=== PATIENT | female | born 1955 | race Caucasian/White ===

== ENCOUNTER → 2018-11-14 | Day surgery (SDC) | payer MEDICARE ==
[~2018-11-14] MED LIST: ALPR1TAB2 PO; GABA600T7 PO; IV RINGERS,LACTATED 1000ML 1,000 ML IV SCH; LIDO700A4 TP; LIDOCAINE 1% PF 2 ML VIAL. ID PRN; MIDAZOLAM HCL/PF 2 MG/2 ML VIAL. IV PRN; PROPOFOL 20 ML IV ONE; TRAM50TA PO; fentaNYL PF VIAL 100 MCG/2 ML VIAL IV PRN
[2018-11-14 08:57] VITALS: BP 126/66
== END ==
LOC: SURG 07:36
PROVIDERS: ATTEND Internal Medicine Gastroenterology
DX: K21.0 Gastro-esophageal reflux disease with esophagitis (principal); K22.2 Esophageal obstruction; K31.7 Polyp of stomach and duodenum
CPT/HCPCS: 43235; 43450; J2704

== ENCOUNTER → 2020-06-05 | Outpatient (CLI) | payer MEDICARE ==
[2018-11-14 08:57] VITALS: BP 126/66
[~2020-06-05] MED LIST changes: +GADOTERATE 5 MMOL/10ML VIAL. IVP ONE; -IV RINGERS,LACTATED 1000ML 1,000 ML IV SCH; -LIDOCAINE 1% PF 2 ML VIAL. ID PRN; -MIDAZOLAM HCL/PF 2 MG/2 ML VIAL. IV PRN; -PROPOFOL 20 ML IV ONE; -fentaNYL PF VIAL 100 MCG/2 ML VIAL IV PRN
--- NOTE | 2020-06-06 09:04 | KCIC ---
MRI LUMBAR SPINE WITHOUT AND WITH IV CONTRAST, MRI THORACIC SPINE WITHOUT AND WITH IV CONTRAST Date: 06/05/2020 2:28 PM Indication: Reason: THORACIC AND LUMBAR PAIN. Newer back pain in the last yr or so. Prior lumbar gerardo riddhi '97, '98, '07. Comparison: CT lumbar myelogram 06/09/2006. Technique: Multi-planar multi-weighted magnetic resonance imaging of the thoracic and lumbar spine wa s performed with and without intravenous contrast using the standard lumbar spine protocol. 10 cc Cla riscan contrast was administered intravenously during the examination. FINDINGS: Postsurgical changes of posterior instrumentation at L4-S1 with interbody spacers at L4-5 and L5 is. The thoracic and lumbar spine normally aligned. No acute fracture. Moderate multilevel degenerative d isc desiccation and disc height loss. Multilevel trace degenerative endplate edema. L2 hemangioma. The conus terminates at a normal level. No abnormal signal is seen within the visualized spinal cord. No clumping of intrathecal nerve roots. No soft tissue abnormality in the visualized chest, abdomen, or pelvis. Thoracic: Multilevel tiny disc bulges. No significant spinal canal stenosis or neural foraminal narro wing T12-L1: No disc bulge. No facet arthropathy. No significant spinal stenosis or neural foraminal narro wing. L1-L2: Disc bulge. Mild facet arthropathy. No significant spinal stenosis or neural foraminal narrowi ng. L2-L3: Disc bulge. Mild facet arthropathy. No significant spinal stenosis or neural foraminal narrowi ng. L3-L4: Disc bulge. Mild facet arthropathy. Ligamentum flavum thickening. Mild spinal stenosis. No eduard ral foraminal narrowing. L4-L5: Disc bulge with left far lateral protrusion. No spinal canal stenosis or neural foraminal narr owing. L5-S1: Posterior decompression. No spinal canal stenosis. No neural foraminal narrowing. IMPRESSION: Moderate thoracolumbar spondylosis. No high-grade spinal canal stenosis. Electronically signed by: Philipp Dimas MD (06/06/2020 9:02 AM) [id number]
== END ==
LOC: KCIC MRI 14:16
PROVIDERS: ATTEND Family Medicine
DX: M47.815 Spondylosis without myelopathy or radiculopathy, thoracolumbar region (principal); M51.26 Other intervertebral disc displacement, lumbar region; M12.88 Other specific arthropathies, not elsewhere classified, other specified site; D18.09 Hemangioma of other sites
CPT/HCPCS: 72157; 72158; A9575

== ENCOUNTER → 2020-06-23 | Outpatient (CLI) | payer MEDICARE ==
[2018-11-14 08:57] VITALS: BP 126/66
[~2020-06-23] MED LIST changes: -GADOTERATE 5 MMOL/10ML VIAL. IVP ONE
--- NOTE | 2020-06-23 09:38 | KCIC ---
EXAMINATION: Magnetic resonance imaging (MRI) of the cervical spine without contrast 06/23/2020 8:05 AM HISTORY: Cervical radiculopathy. Neck pain with stiffness and limited range of motion. Weakness in th e right upper extremity. TECHNIQUE: Multiplanar multi-weighted MRI of the cervical spine was performed without intravenous con trast using the standard cervical spine protocol. Contrast information: None administered COMPARISON: None available. FINDINGS: There is 2 mm anterolisthesis of C3 on C4 and C4 on C5. There is 2 mm retrolisthesis of C5 on C6. The re is 2 mm anterolisthesis of C6 on C7. There is 2 mm anterolisthesis of T1 on T2 and T2 and T3. Post erior fossa is normal in appearance. Vertebral artery flow voids are maintained. Craniocervical junct ion is intact. Atlantoaxial articulation is intact. Cervical spinal cord signal intensity is normal i n all sequences. Vertebral body heights are maintained. Marrow signal intensity is normal in all sequ ences. No acute fracture is identified. There is no prevertebral soft tissue swelling. No paraspinal soft tissue abnormality is identified. C2-C3: Disc is normal in configuration. No significant facet arthropathy. No neuroforaminal or spinal canal stenosis. C3-C4: There is a mild disc bulge. Moderate left facet arthropathy. Mild uncovertebral joint disease. Mild left neuroforaminal stenosis. No spinal canal stenosis. C4-C5: There is a posterior disc osteophyte complex. Mild facet arthropathy. Mild uncovertebral joint disease. No neuroforaminal or spinal canal stenosis. C5-C6: There is a posterior disc osteophyte complex with central disc extrusion. There is moderate ri ght and mild left facet arthropathy. Moderate right and mild left uncovertebral joint disease. Mild r ight neural foraminal stenosis. Mild spinal canal stenosis without deformity of the cord or cord sign al alteration. C6-C7: There is a posterior discussed by complex with central disc protrusion. Mild facet arthropathy . Moderate uncovertebral joint disease. Mild to moderate bilateral neuroforaminal stenosis. Mild spin al canal stenosis without deformity of the cord or cord signal alteration. Findings are exacerbated b y ligamentum flavum infolding. C7-T1: Disc is normal in configuration. Mild facet arthropathy. No neuroforaminal or spinal canal concha nosis. T1-T2: There is a left central disc extrusion. Mild facet arthropathy. Mild left neuroforaminal steno sis. Mild spinal canal stenosis without deformity of the cord or cord signal alteration. T2-T3: There is a posterior disc osteophyte complex with central disc extrusion. Mild facet arthropat hy. No significant neuroforaminal or spinal canal stenosis. IMPRESSION: Mild to moderate degenerative changes of the cervical spine, as described in detail above. Electronically signed by: Elba Sethi MD (06/23/2020 9:36 AM) [id number]
--- NOTE | 2020-06-23 14:43 | KCIC ---
EXAM: CT Lumbar Spine without IV contrast INDICATION: Reason: Back pain, pseudoarthritis, previous back surgeries. / Spl. Instructions: / Hist ory: Three previous surgeries, last one 2006. TECHNIQUE: Multi-detector row CT images were obtained through the lumbar spine without the use of IV contrast. Post-processing sagittal and coronal reconstructed images were obtained for interpretation . All CT scans performed at this facility utilize dose optimization techniques as appropriate to the exam, including the following: Automated exposure control and adjustment of the mA and/or KV accordin g to patient size (this includes techniques or standardized protocols for targeted exams where dose i s indication/reason for exam). COMPARISON: MRI L-spine of 06/05/2020 FINDINGS: The lowest fully formed disc is referred to as the L5-S1 level. ALIGNMENT: Alignment is within normal limits. OSSEOUS: Mild generalized demineralization. Interbody graft at L4-L5 is not fully incorporated. It s hows evidence of subsidence into both the inferior endplate of L4 and the superior endplate of L5. In terbody graft at L5-S1 appears better incorporated. No acute fracture. No aggressive appearing bony l esions. Posterior decompression at L5 with bilateral laminectomy is redemonstrated. DISC SPACES: In addition to the aforementioned interbody fusion at L4-5 and L5-S1, mild diffuse disc bulge is present with variable loss of height at L1-L2 through L3-L4.. FACET JOINTS: Migel and pedicle screw construct fusion bilaterally is present spanning L4-S1 on the ri ght, and L5-S1 on the left. SPINAL CANAL: No bony central canal stenosis is apparent. Evaluation is limited in the absence of in trathecal contrast. NEUROFORAMINA: Mild to moderate left L3-L4 foraminal narrowing due to asymmetric disc loss of height . SOFT TISSUES: Unremarkable. IMPRESSION: Posterior lumbar interbody fusion at L4-L5 and L5-S1 as described with no acute osseous abnormality n oted. Electronically signed by: Wu Vieyra MD (06/23/2020 2:41 PM) [id number]
== END ==
LOC: KCIC MRI 07:53
PROVIDERS: ATTEND Neurological Surgery
DX: M47.22 Other spondylosis with radiculopathy, cervical region (principal); M43.26 Fusion of spine, lumbar region; M48.061 Spinal stenosis, lumbar region without neurogenic claudication; M25.78 Osteophyte, vertebrae
CPT/HCPCS: 72131; 72141

== ENCOUNTER → 2020-07-06 | Outpatient (CLI) | payer MEDICARE ==
[2018-11-14 08:57] VITALS: BP 126/66
--- NOTE | 2020-07-03 16:08 | PREOP HP ---
DATE OF SERVICE: 07/06/2020 HISTORY OF PRESENT ILLNESS: The patient is a pleasant 64-year-old, who is having difficulty with lower back pain on the left side as well as some pain in her right buttock and some burning pain in her legs. She says the pain is constant and worse with sitting and standing. She says she missed change positions frequently. She is taking gabapentin, Tylenol and Advil. She has been doing physical therapy exercises at home, which have not helped her. She reports that sitting and driving in her previous vehicle was associated with erosion of skin in the lower lumbar spine on the left related to her instrumentation, which required her to change vehicles. CURRENT MEDICATIONS: Xanax, gabapentin, Tylenol, Advil. PAST MEDICAL HISTORY: Osteoporosis, cervical injury, headaches, arthritis. PAST SURGICAL HISTORY: , right breast lumpectomy, right wrist ganglion cyst, lumbar laminectomy in 1997, L4-L5 lumbar fusion in 1998, hysterectomy, L5-S1 fusion in 2005. FAMILY HISTORY: Alzheimer disease, aneurysm, cancer, diabetes, hypertension, heart disease. SOCIAL HISTORY: , nonsmoker. Drinks alcohol 1-2 times per year. ALLERGIES: CODEINE. REVIEW OF SYSTEMS: A 12-point review of systems was performed and is noncontributory except that mentioned above. PHYSICAL EXAMINATION: GENERAL: Alert, pleasant, in no acute distress. HEAD: Normocephalic, atraumatic. Well-healed lumbar incision. SKIN: Warm and dry. MUSCULOSKELETAL: Lumbar paraspinal muscle bulk is normal, restricted range of motion of the lumbar spine, normal range of motion of the lower extremities bilaterally, the screw at L5-S1 is easily palpated through the skin on the left side and exquisitely tender. EXTREMITIES: No clubbing, cyanosis or edema. NEUROLOGIC: Alert and oriented x 3. Strength is 5/5 in the upper and lower extremities, sensory was intact in the lower extremities. Reflexes were present and symmetric in the lower extremities, normal gait. IMAGING: I reviewed her lumbar MRI scan. On that study, there are postoperative changes at L4-L5 and L5-S1. On the right the instrumentation extends from L4-S1 and on the left L5-S1. ASSESSMENT AND PLAN: Her instrumentation on the right side is rather profound and can be easily palpated beneath the skin, I do think it is the cause of her significant lower back, left-sided pain. I have recommended that we remove this hardware and evaluate the fusion beneath. I feel that this could certainly help her with her right-sided back pain. With regard to her cervical spine that can be addressed after the lumbar spine has been treated. She understands the surgery including the technique, the risk and expected postoperative course. We will make the arrangements. She does understand and would like to proceed. CHARISSE GRIFFITH MD DR: AARON/erick JOB#: [id number] / [id number]
[~2020-07-06] MED LIST changes: +ACET325T9 PO; +DOCU-109 PO; +IBUP200T58 PO
[2020-07-06 10:57] LABS: BASO % 1 % (0-3); EOS % 1 % (0-3); HEMATOCRIT 38.6 % (36.0-47.0); LYMPH # 1.6 x10^3/uL (1.0-4.8); LYMPH % 43 % (24-48); MEAN CORPUSCULAR HEMOGLOBIN 30 pg (25-35); MEAN CORPUSCULAR HGB CONC 34 g/dL (31-37); MEAN CORPUSCULAR VOLUME 88 fL (79-100); MONO # 0.3 x10^3/uL (0.0-1.1); MONO % 9 % (0-9); NEUT # 1.7 x10^3/uL (1.8-7.7); NEUT % 46 % (31-73); PLATELET COUNT 243 x10^3/uL (140-400); RED BLOOD COUNT 4.41 x10^6/uL (3.50-5.40); RED CELL DISTRIBUTION WIDTH 14.1 % (11.5-14.5); WHITE BLOOD COUNT 3.7 x10^3/uL (4.0-11.0)
[2020-07-06 11:11] LABS: ALBUMIN 3.9 g/dL (3.4-5.0); ALBUMIN/GLOBULIN RATIO 1.3 (1.0-1.7); CALCIUM 9.2 mg/dL (8.5-10.1); CREATININE 0.6 mg/dL (0.6-1.0); GFR 100.6; POTASSIUM 3.9 mmol/L (3.5-5.1); TOTAL BILIRUBIN 0.4 mg/dL (0.2-1.0)
== END ==
LOC: SURGPAT 09:47
PROVIDERS: ATTEND Neurological Surgery
DX: Z01.812 Encounter for preprocedural laboratory examination (principal); Z20.822 Contact with and (suspected) exposure to COVID-19; M54.5 Low back pain; Z98.1 Arthrodesis status
CPT/HCPCS: 80053; 85025; 87641; U0003

== ENCOUNTER 2020-07-09 07:06 | Day surgery (SDC) | payer MEDICARE ==
--- NOTE | 2020-07-09 06:53 | PREOP HP ---
DATE OF SERVICE: 07/06/2020 HISTORY OF PRESENT ILLNESS: The patient is a pleasant 64-year-old, who is having difficulty with lower back pain on the left side as well as some pain in her right buttock and some burning pain in her legs. She says the pain is constant and worse with sitting and standing. She says she missed change positions frequently. She is taking gabapentin, Tylenol and Advil. She has been doing physical therapy exercises at home, which have not helped her. She reports that sitting and driving in her previous vehicle was associated with erosion of skin in the lower lumbar spine on the left related to her instrumentation, which required her to change vehicles. CURRENT MEDICATIONS: Xanax, gabapentin, Tylenol, Advil. PAST MEDICAL HISTORY: Osteoporosis, cervical injury, headaches, arthritis. PAST SURGICAL HISTORY: , right breast lumpectomy, right wrist ganglion cyst, lumbar laminectomy in 1997, L4-L5 lumbar fusion in 1998, hysterectomy, L5-S1 fusion in 2005. FAMILY HISTORY: Alzheimer disease, aneurysm, cancer, diabetes, hypertension, heart disease. SOCIAL HISTORY: , nonsmoker. Drinks alcohol 1-2 times per year. ALLERGIES: CODEINE. REVIEW OF SYSTEMS: A 12-point review of systems was performed and is noncontributory except that mentioned above. PHYSICAL EXAMINATION: GENERAL: Alert, pleasant, in no acute distress. HEAD: Normocephalic, atraumatic. Well-healed lumbar incision. SKIN: Warm and dry. MUSCULOSKELETAL: Lumbar paraspinal muscle bulk is normal, restricted range of motion of the lumbar spine, normal range of motion of the lower extremities bilaterally, the screw at L5-S1 is easily palpated through the skin on the left side and exquisitely tender. EXTREMITIES: No clubbing, cyanosis or edema. NEUROLOGIC: Alert and oriented x 3. Strength is 5/5 in the upper and lower extremities, sensory was intact in the lower extremities. Reflexes were present and symmetric in the lower extremities, normal gait. IMAGING: I reviewed her lumbar MRI scan. On that study, there are postoperative changes at L4-L5 and L5-S1. On the right the instrumentation extends from L4-S1 and on the left L5-S1. ASSESSMENT AND PLAN: Her instrumentation on the right side is rather profound and can be easily palpated beneath the skin, I do think it is the cause of her significant lower back, left-sided pain. I have recommended that we remove this hardware and evaluate the fusion beneath. I feel that this could certainly help her with her right-sided back pain. With regard to her cervical spine that can be addressed after the lumbar spine has been treated. She understands the surgery including the technique, the risk and expected postoperative course. We will make the arrangements. She does understand and would like to proceed. CHARISSE GRIFFITH MD DR: AARON/erick JOB#: [id number] / [id number]
[~2020-07-09 07:06] MED LIST changes: +BACITRACIN 50,000 UNIT in IV NORMAL SALINE 1000ML BAG 1,000 ML IRR ONE; -DOCU-109 PO; +HYDROmorphone 2 MG/ML VIAL IVP PRN; +MORPHINE SULFATE 2 MG/ML VIAL. IVP PRN; +PROCHLORPERAZINE 10 MG/2 ML VIAL. IVP PRN; +fentaNYL PF VIAL 100 MCG/2 ML VIAL IVP PRN
[2020-07-09] MEDS ORDERED: GELATIN SPONGE SIZE 100. ONE (07:22)
[2020-07-09] MEDS ORDERED: THROMBIN TOPICAL 20,000 UNIT SPRAY.SYRN KIT TP ONE (07:22)
[2020-07-09] MEDS ORDERED: BUPIVACAINE-EPI 0.5%-1:200000 MPF 30 ML VIAL. ONE (07:22)
[2020-07-09] MEDS ORDERED: KETOROLAC 60 MG/2 ML VIAL. ONE (07:22)
[2020-07-09] MEDS ORDERED: PROPOFOL 10 MG/ML (20ML) VIAL. IV ONE (07:38)
[2020-07-09] MEDS ORDERED: PROPOFOL 50 ML IV ONE (07:38)
[2020-07-09] MEDS ORDERED: LIDOCAINE 2% PF 5 ML VIAL. ONE (07:38)
[2020-07-09] MEDS ORDERED: REMIFENTANIL 2 MG VIAL. IV ONE (07:39)
[2020-07-09] MEDS ORDERED: ROCURONIUM 50 MG/5 ML VIAL. ONE (07:39)
[2020-07-09] MEDS ORDERED: fentaNYL PF VIAL 100 MCG/2 ML VIAL ONE ×2 (07:39→11:00)
[2020-07-09] MEDS ORDERED: SUCCINYLCHOLINE 200 MG/10 ML VIAL. ONE (07:39)
[2020-07-09] MEDS ORDERED: 0.9 % SODIUM CHLORIDE 20 ML VIAL. IJ ONE (07:41)
[2020-07-09] MEDS: IV RINGERS,LACTATED 1000ML 1,000 ML IV SCH ×2 (07:42→11:22)
[2020-07-09] MEDS ORDERED: PHENYLEPHRINE in 0.9% NACL PF 1 MG/10 ML SYRINGE. IV ONE (09:36)
[2020-07-09] MEDS ORDERED: ePHEDrine PF IN SALINE 50 MG/10 ML SYRINGE. IV ONE (09:59)
[2020-07-09] MEDS ORDERED: ONDANSETRON PF 4 MG/2 ML VIAL. ONE (10:11)
--- NOTE | 2020-07-09 10:40 | DISCH ---
DISCHARGE INSTRUCTIONS Condition on Discharge Condition on Discharge: Stable Activity After Discharge Activity Instructions for Disc: Activity as tolerated, Avoid exertion Bathing Instructions: Shower-keep dressing dry Lifting Instructions after Dis: No heavy lifting, No pulling or pushing, Do not lift >10 pounds Driving Instructions after Dis: No driving for 2 weeks Diet after Discharge Additional Diet Restrictions: resume home diet Wound Incision Care Wound/Incision Care: Ice to area for comfort Other wound/incision instructi: may remove dressing in 48 if dry then may shower, no soaking Contacting the after DC Call your doctor for: Concerns you may have Follow-Up Follow up with: Dr. Griffith's nurse in 2 weeks [phone] CHARISSE RGIFFITH MD Jul 09, 2020 10:40
[2020-07-09] MEDS ORDERED: KETOROLAC 30 MG/ML VIAL. IVP ONE (11:15)
[2020-07-09] MEDS: fentaNYL PF VIAL 100 MCG/2 ML VIAL IVP PRN ×2 (11:21→11:38)
[2020-07-09] MEDS ORDERED: DOCU-109 PO (11:34)
[2020-07-09] MEDS ORDERED: TRAM50TA PO (11:34)
--- NOTE | 2020-07-09 11:39 | OP ---
DATE OF SURGERY: 07/09/2020 PREOPERATIVE DIAGNOSES: Prominent lumbar fusion hardware of the left L5-S1 with severe local pain. POSTOPERATIVE DIAGNOSIS: Prominent lumbar fusion hardware of the left L5-S1 with severe local pain. OPERATION PERFORMED: Left L5-S1 removal of hardware, evaluation of fusion. The operation was done with EMG monitoring, SSEP monitoring, fluoroscopy, microscopic dissection. SURGEON: Sunil Griffith M.D. [employer]: ROBIN Zeng assisted with the surgery. She assisted with the removal of the hardware and closure. OPERATIVE INDICATIONS: The patient is a very pleasant 64-year-old, who developed intractable localized back pain, which was interfering with virtually all of her activities. On palpation, I could palpate the hardware and felt that it was significantly prominent, especially that the patient had lost a significant amount of weight between the time she had this hardware replaced and currently, I recommended removal of the hardware to see if this would help her with her localized pain. She understood the rationale for surgery and the technique of the operation, expected postoperative course and wished to go ahead. DESCRIPTION OF PROCEDURE: Following general endotracheal anesthesia, the patient was positioned prone on the Valentin table. Lumbar region was prepped and draped in standard fashion. RONEL hose and AV impulse boots were applied for DVT prophylaxis. Microscope was draped. Fluoroscopy was draped and brought into the field. Ancef 2 grams were given in less than 1 hour prior to initiation of the surgery. Using fluoroscopic guidance, incision was made directly over slightly medial to the hardware at L5-S1 on the left. I dissected down through skin and subcutaneous tissue, opened the fascia and gently dissected part of the muscle fibers and exposed the hardware. I then using a [employer] removal equipment removed the rods and nuts, followed by the connecting beata, followed by the screws. I placed some Gelfoam and obtained perfect hemostasis. There was no significant firing with screw removal. I irrigated copiously, explored carefully. There were no prominent. There was no longer any other prominent areas. I closed the muscle and the fascia with absorbable sutures as well as subcutaneous tissues. The skin was closed with 4-0 subcuticular stitches. The surgery went very well. SUNIL GRIFFITH MD DR: JAMES/erick JOB#: [id number] / [id number]
[2020-07-09] MEDS ORDERED: traMADol 50 MG TABLET PO ONE (11:45)
[2020-07-09 12:00] VITALS: BP 126/73
== END 2020-07-09 12:56 | disposition home or self-care (01) ==
LOC: SURG 07:06
PROVIDERS: ATTEND Neurological Surgery
DX: T85.698A Other mechanical complication of other specified internal prosthetic devices, implants and grafts, initial encounter (principal); M54.5 Low back pain; K21.9 Gastro-esophageal reflux disease without esophagitis; M19.90 Unspecified osteoarthritis, unspecified site; F41.9 Anxiety disorder, unspecified; Z90.710 Acquired absence of both cervix and uterus; Z98.51 Tubal ligation status; Z98.890 Other specified postprocedural states; Z79.899 Other long term (current) drug therapy; Z98.1 Arthrodesis status; Z72.89 Other problems related to lifestyle; Z88.5 Allergy status to narcotic agent; Z88.8 Allergy status to other drugs, medicaments and biological substances; X58.XXXA Exposure to other specified factors, initial encounter; Y93.89 Activity, other specified; Y92.89 Other specified places as the place of occurrence of the external cause; Y99.8 Other external cause status
CPT/HCPCS: 22850; 97161; A4213; A4364; A4930; A6254; A6258; J0330; J0690; J1885; J2370; J2405; J2704; J3010; J7030; 76000

== ENCOUNTER 2021-05-06 08:43 | Day surgery (SDC) | payer MEDICARE ==
[~2021-05-06] VITALS: Ht 159.4 cm; Wt 52.2 kg
[~2021-05-06 08:43] MED LIST changes: +ACETAMINOPHEN 500 MG TABLET PO PRN; -BACITRACIN 50,000 UNIT in IV NORMAL SALINE 1000ML BAG 1,000 ML IRR ONE; +DOCU-109 PO; +HYDROmorphone 2 MG/ML INJ. IVP PRN; -HYDROmorphone 2 MG/ML VIAL IVP PRN; +IV RINGERS,LACTATED 1000ML 1,000 ML IV SCH; +MORPHINE SULFATE 2 MG/ML INJ. IVP PRN; -MORPHINE SULFATE 2 MG/ML VIAL. IVP PRN; +ceFAZolin SODIUM IV Push 1 GM VIAL. IVP PRN
[2021-05-06 09:01] VITALS: BP 179/81
[2021-05-06] MEDS ORDERED: PROPOFOL 10 MG/ML (20ML) VIAL. IV ONE (09:03)
[2021-05-06] MEDS ORDERED: SUCCINYLCHOLINE 200 MG/10 ML VIAL. ONE (09:03)
[2021-05-06] MEDS ORDERED: ROCURONIUM 50 MG/5 ML VIAL. ONE (09:03)
[2021-05-06] MEDS ORDERED: LIDOCAINE 2% PF 5 ML VIAL. ONE (09:03)
[2021-05-06] MEDS ORDERED: fentaNYL PF VIAL 100 MCG/2 ML VIAL ONE ×2 (09:04→10:57)
[2021-05-06] MEDS ORDERED: ePHEDrine PF IN SALINE 50 MG/10 ML SYRINGE. IV ONE (09:04)
[2021-05-06] MEDS ORDERED: MIDAZOLAM HCL/PF 2 MG/2 ML VIAL. ONE (09:04)
[2021-05-06] MEDS ORDERED: DEXAMETHASONE SOD PHOS 4 MG/ML VIAL ONE (09:05)
[2021-05-06] MEDS ORDERED: GLYCOPYRROLATE 1 MG/5 ML VIAL. ONE (09:06)
[2021-05-06] MEDS ORDERED: NEOSTIGMINE METHYLSULFATE 5 MG/5 ML SYRINGE. ONE (09:06)
[2021-05-06] MEDS ORDERED: CHOL10004 PO (09:11)
[2021-05-06] MEDS ORDERED: SCOPOLAMINE 1.5MG PATCH. TD ONE (09:30)
--- NOTE | 2021-05-06 10:03 | PDOC1 ---
History and Physical Date of Admission Date of Admission DATE: 05/06/21 TIME: 10:00 Identification/Chief Complaint Chief Complaint Right upper quadrant abdominal pain Source Source: Chart review, Patient History of Present Illness History of Present Illness 65-year-old female with complaints of right upper quadrant abdominal pain over the last 2 years and significant loss of weight. She denies any nausea vomiting fevers or chills recent ultrasound of the gallbladder showed polyps within the gallbladder but no stones. Past Medical History Renal/: Other (Endometriosis) Past Surgical History Past Surgical History: Breast Biopsy, , Other (Laparoscopy for endometriosis) Family History Family History: No Significant Social History Smoke: No ALCOHOL: rare Drugs: None Current Medications Current Medications Current Medications Fentanyl Citrate (Fentanyl 2ml Vial) 25 mcg PRN Q5MIN PRN IVP MILD PAIN 1-3; Start 05/06/21 at 06:00; Stop 05/07/21 at 05:59 Fentanyl Citrate (Fentanyl 2ml Vial) 50 mcg PRN Q5MIN PRN IVP MODERATE PAIN 4- 6; Start 05/06/21 at 06:00; Stop 05/07/21 at 05:59 Morphine Sulfate (Morphine Sulfate) 1 mg PRN Q10MIN PRN IVP SEVERE PAIN 7-10; Start 05/06/21 at 06:00; Stop 05/07/21 at 05:59 Ringer's Solution 1,000 ml @ 30 mls/hr Q24H IV Last administered on 05/06/21at 09:13; Start 05/06/21 at 06:00; Stop 05/06/21 at 17:59 Hydromorphone HCl (Dilaudid) 0.5 mg PRN Q10MIN PRN IVP SEVERE PAIN 7-10, 2nd CHOICE; Start 05/06/21 at 06:00; Stop 05/07/21 at 05:59 Prochlorperazine Edisylate (Compazine) 5 mg PACU PRN PRN IVP NAUSEA, MRX1; Start 05/06/21 at 06:00; Stop 05/07/21 at 05:59 Acetaminophen (Tylenol) 1,000 mg 1X PREOP PRN PO PRIOR TO PROCEDURE Last administered on 05/06/21at 09:14; Start 05/06/21 at 06:00; Stop 05/06/21 at 15:00 Cefazolin Sodium (Ancef) 1 gm 1X PREOP PRN IVP PRIOR TO PROCEDURE; Start 05/06/21 at 06:00; Stop 05/06/21 at 15:00 Lidocaine HCl (Lidocaine Pf 2% Vial) 5 ml STK-MED ONCE .ROUTE ; Start 05/06/21 at 09:03; Stop 05/06/21 at 09:03; Status DC Propofol (Diprivan) 200 mg STK-MED ONCE IV ; Start 05/06/21 at 09:03; Stop 05/06/21 at 09:03; Status DC Succinylcholine Chloride (Anectine) 200 mg STK-MED ONCE .ROUTE ; Start 05/06/21 at 09:03; Stop 05/06/21 at 09:04; Status DC Rocuronium [place] (Zemuron) 50 mg STK-MED ONCE .ROUTE ; Start 05/06/21 at 09:03; Stop 05/06/21 at 09:04; Status DC Fentanyl Citrate (Fentanyl 2ml Vial) 100 mcg STK-MED ONCE .ROUTE ; Start 05/06/21 at 09:04; Stop 05/06/21 at 09:04; Status DC Midazolam HCl (Versed) 2 mg STK-MED ONCE .ROUTE ; Start 05/06/21 at 09:04; Stop 05/06/21 at 09:04; Status DC Ephedrine Sulfate (ePHEDrine PF IN SALINE SYRINGE) 50 mg STK-MED ONCE IV ; Start 05/06/21 at 09:04; Stop 05/06/21 at 09:05; Status DC Dexamethasone Sodium Phosphate (Decadron) 4 mg STK-MED ONCE .ROUTE ; Start 05/06/21 at 09:05; Stop 05/06/21 at 09:05; Status DC Neostigmine [place] (Neostigmine Methylsulfate) 5 mg STK-MED ONCE .ROUTE ; Start 05/06/21 at 09:06; Stop 05/06/21 at 09:06; Status DC Glycopyrrolate (Robinul) 1 mg STK-MED ONCE .ROUTE ; Start 05/06/21 at 09:06; Stop 05/06/21 at 09:06; Status DC Scopolamine (Transderm-Scop) 1 patch 1X ONCE TD Last administered on 05/06/21at 09:33; Start 05/06/21 at 09:30; Stop 05/06/21 at 09:31; Status DC Active Scripts Active Reported Vitamin D3 (Vitamin D) 25 Mcg Tablet 1,000 Units PO DAILY 1,000 UNITS = 25 MCG Tylenol (Acetaminophen) 325 Mg Tablet 650 Mg PO BID Advil (Ibuprofen) 200 Mg Tablet 200 Mg PO BID Gabapentin 600 Mg Tablet 300 Mg PO BID Xanax (Alprazolam) 1 Mg Tablet 1 Mg PO DAILY Allergies Allergies: Coded Allergies: alendronate sodium (Verified Allergy, Intermediate, N/V, 05/06/21) celecoxib (Unverified Allergy, Intermediate, Swelling, 05/06/21) fentanyl (Verified Allergy, Intermediate, LOW DOSE OK, HIGH DOSE HEART PALPITATIONS, 05/06/21) patch only. IV dose OK morphine (Verified Allergy, Intermediate, BUCIO, N/V, 05/06/21) codeine (Unverified Adverse Reaction, Intermediate, Nausea and Vomiting, 05/06/21) debilitating headache ROS Gastrointestinal: Yes Abdominal Pain Physical Exam General: Alert, Oriented X3, Cooperative, No acute distress HEENT: Atraumatic, PERRLA, EOMI Lungs: Clear to auscultation, Normal air movement Heart: RRR, no murmurs Abdomen: Normal bowel sounds, Soft, Other (Tender to palpation right upper quadrant) Rectal Exam: not examined Extremities: No edema Skin: No significant lesion Neuro: Normal gait, Normal speech Psych/Mental Status: Mental status NL Vitals Vitals Vital Signs Date Time Temp Pulse Resp B/P (MAP) Pulse Ox O2 Delivery O2 Flow Rate FiO2 05/06/21 09:06 97.7 101 18 179/81 100 Room Air 97.7 VTE Prophylaxis Ordered VTE Prophylaxis Devices: Yes VTE Pharmacological Prophylaxi: Contraindicated Assessment/Plan Assessment/Plan Gallbladder polyp with right upper quadrant abdominal pain plan laparoscopic cholecystectomy Justifications for Admission Other Justification CORI SEBASTIAN MD May 06, 2021 10:03
[2021-05-06] MEDS ORDERED: SURGICEL HEMOSTAT 4X8 EACH. ONE (10:36)
[2021-05-06] MEDS ORDERED: IOHEXOL 300 MG/ML 50 ML VIAL. ONE (10:36)
[2021-05-06] MEDS ORDERED: BUPIVACAINE-EPI 0.25% 30 ML VIAL KIT. ONE (10:36)
[2021-05-06] MEDS ORDERED: SUGAMMADEX SODIUM 200 MG/2 ML VIAL. IVP ONE (11:15)
--- NOTE | 2021-05-06 11:16 | PDOC4 ---
Operative Note Operative Note Date: May 06, 2021 at 11:13 AM Preoperative diagnosis: Gallbladder polyp Postoperative diagnosis: Same Procedure: Laparoscopic cholecystectomy with fluorescein cholangiography Surgeon: Petey Specimen: Gallbladder Dictation: Patient is a 65-year-old female has had right upper quadrant abdominal pain and ultrasound showing gallbladder polyp. Procedure of laparoscopic cholecystectomy was explained to the patient detail risk benefits were also discussed including bleeding infection injury to intra-abdominal contents possible necessitating further open operations alternatives to this procedure also discussed with the patient who seemed to understand and gave both verbal and written consent to have the procedure performed. Patient was taken to the operating room placed in the supine position general anesthesia was initiated once patient was asleep and intubated her abdomen was prepped and draped usual sterile fashion using ChloraPrep. Area just below the umbilicus was injected with quarter percent Marcaine with epinephrine incision was made 11 blade scalpel and a varies needle was placed within the abdomen creating pneumoperitoneum once this was complete the millimeter port was placed and a 5 mm camera space within the abdomen and inspected no other abnormalities were noted. 5 mm ports placed in the right upper quadrant 5 mm port was placed in the right midabdomen and a 5 mm port was placed in the right lateral abdomen all under direct visualization. The dome of the gallbladder was grasped retracted cephalad the infundibulum of the gallbladder is grasped retracted laterally exposing the triangle adherent tissues of the triangle were taken down exposing the cystic duct and cystic artery. Fluorescein cholangiography was performed which showed good fluorescein dye within the cystic duct and the common bile duct without evidence of obstruction. The cystic duct and cystic artery doubly clipped and transected the gallbladder was taken off the liver with hook electrocautery placed in Endo Catch bag moved to the umbilicus right upper quadrant was irrigated and suctioned dry hemostasis deemed appropriate the pneumoperitoneum was reduced all ports were removed the fascial defect at the umbilicus was closed with a [id number] Vicryl suture and the skin was reapproximated all port sites for subcuticular Monocryl Mastisol Steri-Strips and island dressings were applied. Patient was awakened and extubated in the operating room taken to recovery in stable condition all sponge instrument needle counts listed as correct estimated blood loss 5 mL CORI SEBASTIAN MD May 06, 2021 11:16
[2021-05-06] MEDS ORDERED: OXYC-325 PO (11:21)
--- NOTE | 2021-05-06 11:24 | DISCH ---
DISCHARGE INSTRUCTIONS Condition on Discharge Condition on Discharge: Stable Activity After Discharge Activity Instructions for Disc: Avoid exertion Other activity instructions: No lifting more than 20 pounds for 2 weeks Diet after Discharge Diet after Discharge: Low Fat Additional Diet Restrictions: resume home diet Wound Incision Care Wound/Incision Care: Ice to area for comfort Other wound/incision instructi: May shower in 24 hours Contacting the after DC Call your doctor for: If your condition worsens Follow-Up Follow up with: Dr. Sebastian in 2 weeks CORI SEBASTIAN MD May 06, 2021 11:24
[2021-05-06] MEDS ORDERED: oxyCODONE/APAP 5/325 1 TAB TABLET PO ONE (12:15)
[2021-05-06 12:47] VITALS: BP 145/72
--- NOTE | 2021-05-11 09:08 | PATHOLOGY ---
[facility] Accession Number: [id number] . 01 Material submitted: . gallbladder - GALLBLADDER AND CONTENTS . 01 Clinical history: . GALLBLADDER POLYP LAP VENUS . 02 Diagnosis: Gallbladder, laparoscopic cholecystectomy: - Cholesterolosis, focally polypoid. - Chronic cholecystitis. - Focal lipogranulomata of gallbladder neck lymph node. (JPM:pouncer; 05/10/2021) MBR 05/10/2021 1158 Local . 02 Comment: There are no calculi identified within the gallbladder lumen or specimen container. There is no evidence of malignancy. (JPM:pouncer; 05/10/2021) . 02 Electronically signed: . Sukh Kamara MD, Pathologist NPI- [id number] . 01 Gross description: . Fixative: Formalin Labeled: Gallbladder and contents Specimen received: Previously punctured gallbladder Dimensions: 7.4 x 4.1 x 1.0 cm Serosa: Blue-chawla Lymph node: None identified Mucosa: Velvety, bile-stained Average wall thickness: 0.1 cm Calculi: None identified Abnormalities: Several bright yellow polypoid excrescences ranging in size from 0.1-0.3 cm . Rn Rehabilitation body, fundus, and the cystic duct margin in cassette A1, to include polypoid excrescences. (CAA; 05/07/2021) QAC/QAC 05/10/2021 1157 Local . 02 Pathologist provided ICD-10: K81.1, K82.4 . 02 CPT . 876346 Specimen Comment: A courtesy copy of this report has been sent to [phone] Specimen Comment: [phone], Specimen Comment: Report sent to , DR HASKINS / DR KHOURY Performed at: 01 [facility] [place] [id number] [facility] [address], [place], [place] [id number] MD Sergio Fernández MD Phone: [phone] Performed at: 02 [facility] [place] [address] [place], [place] [id number] MD Sukh Kamara MD Phone: [phone]
== END 2021-05-06 13:30 | disposition home or self-care (01) ==
LOC: SURG 08:43
PROVIDERS: ATTEND Surgery
DX: K82.4 Cholesterolosis of gallbladder (principal); K81.1 Chronic cholecystitis; K21.9 Gastro-esophageal reflux disease without esophagitis; M19.90 Unspecified osteoarthritis, unspecified site; F41.9 Anxiety disorder, unspecified; Z90.710 Acquired absence of both cervix and uterus; Z98.51 Tubal ligation status; Z98.890 Other specified postprocedural states; Z79.899 Other long term (current) drug therapy; Z72.89 Other problems related to lifestyle; Z88.5 Allergy status to narcotic agent; Z88.6 Allergy status to analgesic agent; Z88.8 Allergy status to other drugs, medicaments and biological substances
CPT/HCPCS: 47563; A4209; A4364; A4930; J0330; J0690; J1100; J2250; J2704; J2710; J3010; J3490; Q9967; 88304; A4657